=== PATIENT | male | born 1975 | race Hispanic/Latino ===

== ENCOUNTER 2017-09-24 10:49 | Emergency (ER) | payer MEDICAID ==
[~2017-09-24] VITALS: Ht 170.2 cm; Wt 137.0 kg
[2017-09-24] MEDS ORDERED: AMITIZA8 MCG PO (11:11)
[2017-09-24] MEDS ORDERED: TRAZODONE HCL50 MG PO (11:11)
== END 2017-09-24 13:15 | disposition home or self-care (01) ==
LOC: ED 10:49
DX: R10.11 Right upper quadrant pain (principal); Z88.8 Allergy status to other drugs, medicaments and biological substances; Z79.899 Other long term (current) drug therapy
CPT/HCPCS: 80053; 83690; 85025; 96374; 96375; 99283; J1170; J1885